=== PATIENT | female | born 1930 | race Caucasian/White ===

== ENCOUNTER → 2016-07-01 | Outpatient (CLI) | payer MEDICARE, OTHER ==
[~2016-07-01] MED LIST: EXELON PATCH 99.5 MG TOP; LEXAPRO20 MG PO; NAC600 MG PO; SINEMET PO
== END | disposition disaster alternative care site (69) ==
LOC: GRAD 12:17
DX: R91.1 Solitary pulmonary nodule (principal); I77.819 Aortic ectasia, unspecified site; J43.9 Emphysema, unspecified; J98.4 Other disorders of lung